=== PATIENT | male | born 1980 | race Caucasian/White ===

== ENCOUNTER → 2022-08-18 | Emergency (ER) | payer MEDICAID ==
[~2022-08-18] VITALS: Ht 172.7 cm; Wt 61.7 kg
[~2022-08-18] MED LIST: LORazepam 2MG/ML-1ML VIAL IV ONE; SODIUM CHLORIDE 0.9% 1,000 ML IV ONE
[2022-08-18 02:50] VITALS: BP 142/86
== END | disposition home or self-care (01) ==
LOC: ER 00:44
DX: F41.9 Anxiety disorder, unspecified (principal); R00.0 Tachycardia, unspecified; F14.10 Cocaine abuse, uncomplicated
CPT/HCPCS: 93005; 96361; 96374; 99283; J2060; J7030

== ENCOUNTER 2023-03-05 09:21 | Emergency (ER) | payer MEDICAID ==
[~2023-03-05] VITALS: Ht 172.7 cm; Wt 73.0 kg
[2023-03-05 10:36] VITALS: BP 92/65; PULSE 88; RESP 18; TEMP 98.5; O2SAT 98
[2023-03-05] MEDS ORDERED: IBUP-1456 PO (10:54)
[2023-03-05] MEDS ORDERED: ESCI20TA PO (10:54)
[2023-03-05] MEDS ORDERED: KETOROLAC TROMETH 60MG/2ML VIAL IM ONE (11:00)
== END 2023-03-05 11:08 | disposition home or self-care (01) ==
LOC: ER 09:21
DX: M65.28 Calcific tendinitis, other site (principal); F41.9 Anxiety disorder, unspecified; F17.210 Nicotine dependence, cigarettes, uncomplicated; Z76.0 Encounter for issue of repeat prescription; Z86.73 Personal history of transient ischemic attack (TIA), and cerebral infarction without residual deficits; Z79.899 Other long term (current) drug therapy; Z79.1 Long term (current) use of non-steroidal anti-inflammatories (NSAID)
CPT/HCPCS: 73080; 96372; 99283; J1885